=== PATIENT | male | born 1995 | race Caucasian/White ===

== ENCOUNTER 2023-02-14 16:48 | Emergency (ER) | payer OTHER, SELFPAY ==
[2023-02-14 17:02] VITALS: BP 110/62; PULSE 67; RESP 18; TEMP 36.6; O2SAT 99; BMI 21.1
--- NOTE | 2023-02-14 17:08 | DI.RAD.S_ITS ---
PROCEDURE: XR FINGER RT MIN 2V INDICATIONS: sharp injury accident TECHNIQUE: AP hand, 2 views of the 1st finger(s) acquired. COMPARISON: None. FINDINGS: Bones: No fractures or dislocations. No suspicious bony lesions. Soft tissues: Mild soft tissue injury is seen. No radiopaque foreign bodies are seen. IMPRESSION: No radiopaque foreign bodies are seen. No focal bony abnormality is seen. Dictated by: Dhaval Heard M.D. on 02/14/2023 at 16:36 Approved by: Dhaval Heard M.D. on 02/14/2023 at 16:36
[2023-02-14] MEDS: TET,DIPH,PERTUSS(ACELL),VAC/PF 0.5 ML SYRINGE IM (18:12)
--- NOTE | 2023-02-14 18:13 | ED_ITS ---
HPI - Wound/Laceration <ROSALBA Lay - Last Filed: 02/14/23 19:13> General Chief Complaint: Wound/Laceration Stated Complaint: Hand inj Time Seen by Provider: 02/14/23 18:12 Source: patient Mode of arrival: Ambulatory History of Present Illness HPI narrative: This is a 27-year-old male who injured his right thumb with a Axe prior to arrival. He has a 2 in laceration and there was suspicion for a possible tendon injury due to white tissue being seen with a cut in it. He denies any mobility deficit, denies numbness or tingling, denies knowing when his last tetanus vaccination is. Denies any weakness. States it was thoroughly cleaned prior to arrival. Related Data Previous Rx's Medication Instructions Recorded cephalexin 500 mg capsule 500 mg PO TID 5 days #15 caps 02/14/23 Allergies Allergy/AdvReac Type Severity Reaction Status Date / Time No Known Drug Allergies Allergy Verified 02/14/23 17:02 Review of Systems <ROSALBA Lay - Last Filed: 02/14/23 19:13> Review of Systems ROS Unobtainable: All systems reviewed & are unremarkable except as noted in HPI and below Patient History <ROSALBA Lay - Last Filed: 02/14/23 19:13> Social History Smoking Status: Never smoker Smoking Status: Never smoker Substance Use Type: marijuana Exam <ROSALBA Lay - Last Filed: 02/14/23 19:13> Narrative Exam Narrative: MSK: Patient is right-hand dominant, his right thumb has a 3 cm laceration across the PIP on the dorsum. Suspicious for tendon laceration as there is a 1 cm band that shows a laceration through it, wound has mild amount of bleeding which was controlled after suture repair. Finger was splinted in extension. Initial Vital Signs Initial Vital Signs: Vital Signs Temperature 97.9 F 02/14/23 17:02 Pulse Rate 67 02/14/23 17:02 Respiratory Rate 18 02/14/23 17:02 Blood Pressure 110/62 02/14/23 17:02 Pulse Oximetry 99 02/14/23 17:02 Oxygen Delivery Method Room Air 02/14/23 17:02 <Wanda Bal DO - Last Filed: 02/15/23 01:28> Initial Vital Signs Initial Vital Signs: Vital Signs Temperature 97.9 F 02/14/23 17:02 Pulse Rate 67 02/14/23 17:02 Respiratory Rate 18 02/14/23 17:02 Blood Pressure 110/62 02/14/23 17:02 Pulse Oximetry 99 02/14/23 17:02 Oxygen Delivery Method Room Air 02/14/23 17:02 Procedures <ROSALBA Lay - Last Filed: 02/14/23 19:13> Laceration Repair Laceration 1: Site: hand Side (If applicable): right Size (cm): 3 Description: linear Depth: simple, single layer Local Anesthetic: lidocaine 2% Amount of anesthesia used (mL): 3 Pre-repair: wound explored (Wound is suspicious for a tendon injury, there is a white band almost a cm wide with a laceration) and irrigated extensively Skin layer closed with: nylon Skin layer suture size: 5-0 Number of sutures: 5 Technique: simple, interrupted Orthopedic Splinting/Casting Injury #1: Side: right Upper Extremity Injury Location: finger Upper Extremity Immobilizer: finger (other) Post splinting neuro exam: intact Post splinting vascular exam: intact Placed by: Nursing Course <ROSALBA Lay - Last Filed: 02/14/23 19:13> Orders Ordered: ED Orders 02/14/23 17:08 XR finger RT min 2V Stat Discontinued Medications Diphtheria/Tetanus/Acell Pertussis (Tet,Diph,Pertuss(Acell),Vac/Pf 0.5 Ml Syringe) 0.5 ml IM .ONCE ONE Stop: 02/14/23 17:08 Last Admin: 02/14/23 18:12 Dose: 0.5 ml Documented By: JOSUE Lidocaine HCl (Lidocaine 1% (Pf) 5 Ml) 5 ml INJ NOW ONE Stop: 02/14/23 18:17 Last Admin: 02/14/23 18:17 Dose: 5 ml Documented By: JOSUE Vital Signs Vital signs: Vital Signs - 8 hr 02/14/23 19:14 Pulse Rate 55 L Respiratory Rate 18 Blood Pressure 108/73 Pulse Oximetry 99 Oxygen Delivery Method Room Air <Wadna Bal DO - Last Filed: 02/15/23 01:28> Orders Ordered: ED Orders 02/14/23 17:08 XR finger RT min 2V Stat Discontinued Medications Diphtheria/Tetanus/Acell Pertussis (Tet,Diph,Pertuss(Acell),Vac/Pf 0.5 Ml Syringe) 0.5 ml IM .ONCE ONE Stop: 02/14/23 17:08 Last Admin: 02/14/23 18:12 Dose: 0.5 ml Documented By: JOSUE Lidocaine HCl (Lidocaine 1% (Pf) 5 Ml) 5 ml INJ NOW ONE Stop: 02/14/23 18:17 Last Admin: 02/14/23 18:17 Dose: 5 ml Documented By: JOSUE Vital Signs Vital signs: Vital Signs - 8 hr 02/14/23 19:14 Pulse Rate 55 L Respiratory Rate 18 Blood Pressure 108/73 Pulse Oximetry 99 Oxygen Delivery Method Room Air MDM - Wound/Laceration <ROSALBA Lay - Last Filed: 02/14/23 19:13> Imaging Data Extremity x-ray #1: Radiologist's Impression: [place] [address] XRay Report Signed Patient: Facundo Charles MR#: [id number] : 1995 Acct:[id number] Age/Sex: 27 / M Date of Service: 02/14/23 Loc: ED Accession Number: [id number] ?? Procedure: XR finger RT min 2V Ordering Provider: Carleen Rosas PROCEDURE:? XR FINGER RT MIN 2V ? INDICATIONS:? sharp injury accident ? TECHNIQUE:? AP hand, 2 views of the 1st finger(s) acquired.? ? COMPARISON:? None. ? FINDINGS:? ? Bones:? No fractures or dislocations.? No suspicious bony lesions.? ? Soft tissues:? Mild soft tissue injury is seen.? No radiopaque foreign bodies are seen.? IMPRESSION:? No radiopaque foreign bodies are seen. ? No focal bony abnormality is seen.? ? ? Dictated by: Dhaval Heard M.D. on 02/14/2023 at 16:36 ? ? Approved by: Dhaval Heard M.D. on 02/14/2023 at 16:36 ? MDM Narrative Medical decision making narrative: Chief Complaint: Multiple etiologies for patient's complaint considered including, but not limited to: I have independently reviewed the patient's vital signs and nursing notes as well as prior records if available. Plan: Tetanus vaccination updated, patient denies any for pain medication, his thoroughly irrigated with normal saline after digital block completed with lidocaine 1% without epinephrine. On exploration, no foreign body, neurovascular injury but suspicious for tendon laceration. Patient has full mobility against resistance including flexion and extension isolated each joint and no weakness and neurovascularly intact however this tendon appears to have through and through laceration, could potentially still have a minor amount intact. Patient lives in [place], he was referred to Dr. Amos Holm or hand surgery at [facility]/ Course of Care: X-rays negative for acute fracture or foreign body. Social considerations that may affect disposition: none Questions are addressed and there is agreement with the plan and for follow-up at . I consulted with the ED attending physician Dr. Cespedes as needed for higher level of care considerations and they were available for discussion and recommendations regarding plan of care and diagnostic testing. Patient is appropriate for outpatient management. Discharge Plan Departure Patient Disposition: Home Clinical Impression: Laceration Instructions: DI for Laceration Repair -- Finger Activity Restrictions/Additional Instructions: *You have been diagnosed with a thumb laceration with suspicion for a tendon laceration. Please follow-up with Dr. Holm and or Dr. Avila from your medicine hand, elbow and shoulder. Please follow-up with your primary care provider for referral if you need 1, I will forward this note to them. They work out of [facility] as well so see if you can get in where they are near you. Okay to use topical antibiotic ointment. Please call to schedule a follow-up for a possible tendon injury as soon as they will get you in. We will have your images forwarded as well as this note. *What to do: *Please continue to take your regular medications as directed. [x ] New medication prescriptions sent to your pharmacy: [[facility]] [ ] New medication written as a paper prescription [ ] No new medications given *Please call and schedule follow up with your primary care provider in 2-3 days, at least for an update. Let them know you were seen in the Emergency Department for the above problem. We will electronically transmit a record of today's note if your PCP or specialist is in our system. *If you do not have a primary care provider please contact [phone] to establish care with one of the [facility] primary care providers. *Return to the Emergency Department for worsening symptoms, inability to keep liquids down, fever greater than 101F, chills, or other concerning symptom. Prescriptions: New cephalexin 500 mg capsule 500 mg PO TID 5 Days Qty: 15 0RF Referrals: Tal Oleary MD [Non-Staff] - Amos Holm MD [Non-Staff] - Stand Alone Forms: Patient Portal/API <Wanda Bal DO - Last Filed: 02/15/23 01:28> Cosign ED Attending Vinature Attestation: I was immediately available in the department for consultation. Documentation has been reviewed.
[2023-02-14] MEDS: LIDOCAINE 1% (PF) 5 ML INJ (18:17)
[2023-02-14 19:14] VITALS: BP 108/73; PULSE 55; RESP 18; O2SAT 99
== END 2023-02-14 19:16 | disposition home or self-care (01) ==
PROVIDERS: Emergency Provider Nurse Practitioner Critical Care Medicine
DX: S61.011A Laceration without foreign body of right thumb without damage to nail, initial encounter (principal); W27.0XXA Contact with workbench tool, initial encounter; Z23 Encounter for immunization
CPT/HCPCS: 12002; 73140; 90471; 99283; 90715